=== PATIENT | female | born 1985 | race Caucasian/White ===

== ENCOUNTER 2018-09-30 17:38 | Emergency (ER) | payer SELFPAY ==
[~2018-09-30] VITALS: Ht 165.1 cm; Wt 52.2 kg
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
--- NOTE | 2018-09-30 17:58 | NUR ---
WAS TOLD BY POLICE IN [place], [place] TO COME TO THIS ER FOR DETOX EXPLANED TO PATIENT THAT WE DO NOT HAVE A DETOX UNIT HERE. Brenda HARRINGTON APRN TALKED WITH PATINT ABOUT HER THE [facility] AND WHAT THEY CAN DO FOR HER.
[2018-09-30] MEDS ORDERED: DIAZEPAM 5 MG (VALIUM) TABLET PO ONE (18:00)
[2018-09-30 18:05] VITALS: BP 130/89
[2018-10-01] MEDS ORDERED: TRAM50TA2 PO (08:57)
[2018-10-01] MEDS ORDERED: HYDR-3820 PO (08:57)
[2018-10-01] MEDS ORDERED: LORA0.5T PO (08:57)
[2018-10-01] MEDS ORDERED: MELO7.5T46 PO (08:58)
== END 2018-09-30 18:05 | disposition home or self-care (01) ==
LOC: ER 17:39
DX: F10.129 Alcohol abuse with intoxication, unspecified (principal)
CPT/HCPCS: 99283

== ENCOUNTER 2018-09-30 21:15 | Inpatient (IN) | payer SELFPAY ==
[~2018-09-30] VITALS: Ht 165.1 cm; Wt 59.0 kg
[2018-09-30] MEDS ORDERED: LACTATED RINGERS 1,000 ML IV ONE (21:36)
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
[2018-09-30 21:44] LABS: BASOPHILS # (AUTO) 0.1 10^3/uL (0.0-0.1); BASOPHILS % (AUTO) 1 % (0-10); EOSINOPHILS # (AUTO) 0.1 10^3/uL (0.0-0.3); EOSINOPHILS % (AUTO) 1 % (0-10); HEMATOCRIT 33 % (35-52); HEMOGLOBIN 10.6 G/DL (11.5-16.0); LYMPHOCYTES # (AUTO) 4.5 X 10^3 (1.0-4.0); LYMPHOCYTES % (AUTO) 44 % (12-44); MEAN CORPUSCULAR HEMOGLOBIN 28 PG (25-34); MEAN CORPUSCULAR HGB CONC 33 G/DL (32-36); MEAN CORPUSCULAR VOLUME 85 FL (80-99); MEAN PLATELET VOLUME 11.9 FL (7.4-10.4); MONOCYTES # (AUTO) 0.9 X 10^3 (0.0-1.0); MONOCYTES % (AUTO) 9 % (0-12); NEUTROPHILS # (AUTO) 4.6 X 10^3 (1.8-7.8); NEUTROPHILS % (AUTO) 45 % (42-75); PLATELET COUNT 254 10^3/uL (130-400); RED CELL DISTRIBUTION WIDTH 16.4 % (10.0-14.5); WHITE BLOOD COUNT 10.2 10^3/uL (4.3-11.0)
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
[2018-09-30 21:56] LABS: ALANINE AMINOTRANSFERASE 18 U/L (0-55); ALBUMIN 4.2 GM/DL (3.2-4.5); ALKALINE PHOSPHATASE 75 U/L (40-136); BILIRUBIN,TOTAL 0.8 MG/DL (0.1-1.0); BUN/CREATININE RATIO 21; CALCIUM 8.8 MG/DL (8.5-10.1); CARBON DIOXIDE 22 MMOL/L (21-32); CHLORIDE 109 MMOL/L (98-107); CREATININE SERUM 0.73 MG/DL (0.60-1.30); GFR ESTIMATED > 60; GLUCOSE 97 MG/DL (70-105); MAGNESIUM 2.2 MG/DL (1.6-2.4); POTASSIUM 3.2 MMOL/L (3.6-5.0); SALICYLATE < 5.0 MG/DL (5.0-20.0); SODIUM 145 MMOL/L (135-145); TOTAL PROTEIN 7.9 GM/DL (6.4-8.2)
[2018-09-30 21:59] LABS: BILIRUBIN,URINE NEGATIVE (NEGATIVE); CLARITY,URINE CLEAR; COLOR,URINE YELLOW; GLUCOSE, URINE (UA) NEGATIVE (NEGATIVE); KETONES,URINE NEGATIVE (NEGATIVE); LEUKOCYTE ESTERASE ,URINE NEGATIVE (NEGATIVE); NITRITE,URINE NEGATIVE (NEGATIVE); PH,URINE 7 (5-9); PROTEIN,URINE NEGATIVE (NEGATIVE); UROBILINOGEN,URINE NORMAL (NORMAL)
[2018-09-30] MEDS ORDERED: LORazepam INJ 2 MG/ML (ATIVAN) VIAL IVP ONE (22:00)
[2018-09-30 22:06] LABS: SQUAMOUS EPITHELIAL CELL,UR 0-2 /HPF
--- NOTE | 2018-09-30 22:09 | NUR ---
VERBAL ORDER FOR 1MG ATIVAN IV RECIEVED FROM DR. MCINTYRE, PUSHED IV OVER 1 MIN
[2018-09-30 22:13] LABS: ACETAMINOPHEN < 10 UG/ML (10-30)
[2018-09-30 22:14] LABS: AMPHETAMINE SCREEN, URINE NEGATIVE (NEGATIVE); BARBITURATE SCREEN URINE NEGATIVE (NEGATIVE); BENZODIAZEPINES SCREEN URINE POSITIVE (NEGATIVE); CANNABINOID SCREEN, URINE NEGATIVE (NEGATIVE); COCAINE SCREEN URINE NEGATIVE (NEGATIVE); METHADONE STAT NEGATIVE (NEGATIVE); METHAMPHETAMINE SCREEN URINE S NEGATIVE (NEGATIVE); OPIATE SCREEN URINE NEGATIVE (NEGATIVE); OXYCODONE STAT NEGATIVE (NEGATIVE); PROPOXYPHENE STAT NEGATIVE (NEGATIVE); TRICYCLIC ANTIDEPRESSANTS SCRE NEGATIVE (NEGATIVE)
--- NOTE | 2018-09-30 23:09 | NUR ---
2MG IV ATIVAN VERBAL ORDER RECIEVED FROM DR. MCINTYRE, PUSHED IV OVER 1MIN
[2018-10-01] VITALS (21 sets, daily range): BP systolic 95–158; BP diastolic 53–103
[2018-10-01] MEDS ORDERED: NS IV 1000 ML 1,000 ML ONE (01:11)
[2018-10-01] MEDS ORDERED: 1/2 NS IV SOLUTION 1,000 ML IV PRN (01:38)
[2018-10-01] MEDS: NS IV 1000 ML 1,000 ML IV SCH ×3 (01:38→17:50)
[2018-10-01] MEDS ORDERED: SENNA W/DOCUSATE (SENOKOT S) TABLET PO PRN (01:45)
[2018-10-01] MEDS ORDERED: ANTACID SUSP 30 ML UDC (MYLANTA) PO PRN (01:45)
[2018-10-01] MEDS ORDERED: D5 1/2 NS 1000 ML IV SOLUTION 1,000 ML IV PRN (01:45)
[2018-10-01] MEDS ORDERED: ONDANSETRON 4 MG/2 ML (SDV) Z0FRAN IV PRN (01:45)
[2018-10-01] MEDS ORDERED: LORazepam INJ 2 MG/ML (ATIVAN) VIAL IM/IV PRN (01:45)
[2018-10-01] MEDS ORDERED: ONDANSETRON 4 MG (ZOFRAN) ORAL DISSOLVE TAB SL PRN (01:45)
[2018-10-01] MEDS: D5 1/2 NS W/KCL 20 MEQ/L 1,000 ML IV SCH ×4 (01:49→20:28)
[2018-10-01] MEDS ORDERED: LORazepam INJ 2 MG/ML (ATIVAN) VIAL IVP ONE ×2 (03:30→23:09)
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
[2018-10-01] MEDS: POTASSIUM CL 10MEQ/50ML IVPB 50 ML IV SCH (06:13)
[2018-10-01] MEDS: KCL 20 MEQ TAB (K-DUR) PO SCH (06:13)
[2018-10-01] MEDS: MAGNESIUM 1 GM/100 ML IVPB 100 ML IV SCH (06:13)
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
[2018-10-01] MEDS ORDERED: TRAM50TA2 PO (08:57)
[2018-10-01] MEDS ORDERED: LORA0.5T PO (08:57)
[2018-10-01] MEDS ORDERED: HYDR-3820 PO (08:57)
[2018-10-01] MEDS ORDERED: MELO7.5T46 PO (08:58)
[2018-10-01] MEDS ORDERED: THIAMINE INJECTION 100 MG, FOLIC ACID INJECTION 1 MG, MAGNESIUM SULFATE 2 GM, VITAMIN M... IV SCH ×5 (09:00)
--- NOTE | 2018-10-01 09:02 | NUR ---
SPOKE WITH THE PATIENT ABOUT HER MEDICATIONS. SHE LISTED WHAT SHE TAKES AND I VERIFIED IT WITH THE EXT MED HX. SHE STATES SHE IS NO LONGER TAKING THE MELOXICAM AND SHE DOES NOT TAKE ANYTHING OTC.
[2018-10-01] MEDS: fentaNYL INJECTION 100 MCG/2 ML AMP IVP PRN ×6 (09:56→22:12)
[2018-10-01] MEDS: ONDANSETRON 4 MG/2 ML (SDV) Z0FRAN IV PRN ×2 (11:05→19:08)
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
[2018-10-01] MEDS: LORazepam 1 MG (ATIVAN) TAB PO PRN ×3 (14:42→20:28)
--- NOTE | 2018-10-01 14:43 | NUR ---
CM/SS spoke with the patient and she stated she had a bed date for A/D treatment in [place] that Christi Beck had helped her to get. She did not want her to know that she had drank last night. She did not remember how much she had drank last night of vodka. She stated that she had been on a franklin the last week and normally drank beer (around a 12pack nightly). She stated that she was worried about her son and that he lives with her parents but his father is trying to get custody of him. Spoke with Christi Beck, she has become a liaison due to the situation the patient is in, she did not give full details. Got the number for the treatment center in [place]. Spoke to the A/D treatment in [place] and they do have a bed available for the patient and would be able to give her the pain and ativan medications. The patient would have to arrive today by 5pm, this is not likely to happen today with transportation arrangements. The patient would have to arrive on 10/02 by 2-3pm. Christi was going to check if she was going to be able to transport.
[2018-10-02] VITALS (15 sets, daily range): BP systolic 108–157; BP diastolic 68–112
[2018-10-02] MEDS: fentaNYL INJECTION 100 MCG/2 ML AMP IVP PRN ×8 (01:06→17:03)
[2018-10-02] MEDS: LORazepam 1 MG (ATIVAN) TAB PO PRN (01:06)
[2018-10-02] MEDS: NS IV 1000 ML 1,000 ML IV SCH ×3 (02:01→18:12)
[2018-10-02 03:29] LABS: BASOPHILS % (AUTO) 0 % (0-10); EOSINOPHILS # (AUTO) 0.2 10^3/uL (0.0-0.3); EOSINOPHILS % (AUTO) 2 % (0-10); HEMATOCRIT 29 % (35-52); LYMPHOCYTES # (AUTO) 2.7 X 10^3 (1.0-4.0); LYMPHOCYTES % (AUTO) 32 % (12-44); MEAN CORPUSCULAR HEMOGLOBIN 27 PG (25-34); MEAN CORPUSCULAR HGB CONC 32 G/DL (32-36); MEAN CORPUSCULAR VOLUME 86 FL (80-99); MEAN PLATELET VOLUME 11.7 FL (7.4-10.4); MONOCYTES # (AUTO) 0.7 X 10^3 (0.0-1.0); MONOCYTES % (AUTO) 8 % (0-12); NEUTROPHILS # (AUTO) 5.1 X 10^3 (1.8-7.8); NEUTROPHILS % (AUTO) 59 % (42-75); PLATELET COUNT 218 10^3/uL (130-400); RED CELL DISTRIBUTION WIDTH 16.5 % (10.0-14.5); WHITE BLOOD COUNT 8.7 10^3/uL (4.3-11.0)
[2018-10-02 03:51] LABS: BUN/CREATININE RATIO 18; CALCIUM 7.8 MG/DL (8.5-10.1); CARBON DIOXIDE 19 MMOL/L (21-32); CHLORIDE 107 MMOL/L (98-107); CREATININE SERUM 0.66 MG/DL (0.60-1.30); GFR ESTIMATED > 60; GLUCOSE 111 MG/DL (70-105); MAGNESIUM 1.7 MG/DL (1.6-2.4); PHOSPHORUS 2.9 MG/DL (2.3-4.7); POTASSIUM 3.6 MMOL/L (3.6-5.0); SODIUM 135 MMOL/L (135-145)
--- NOTE | 2018-10-02 04:40 | Pulmonary Progress Note ---
Subjective Time Seen by a Provider: 05:00 Subjective/Events-last exam No complications noted. Sepsis Event Evaluation Height, Weight, BMI Height: 5'5.00" Weight: 122lbs. 0.0oz. 55.684384qh; 21.5 BMI Method:Stated Exam Exam Vital Signs Date Time Temp Pulse Resp B/P (MAP) Pulse Ox O2 Delivery O2 Flow Rate FiO2 10/02/18 04:00 86 18 96 Room Air 10/02/18 03:00 89 18 115/83 (94) 98 Room Air 10/02/18 02:00 80 24 112/68 (83) 98 Room Air 10/02/18 01:00 98.5 10/02/18 01:00 96 10/02/18 01:00 98 11 146/96 (113) 98 Room Air 10/02/18 00:00 83 25 157/87 (110) 96 Room Air 10/02/18 00:00 Room Air 10/01/18 23:00 95 18 158/99 (118) 100 Room Air 10/01/18 22:00 112 18 100 Room Air 10/01/18 21:00 111 26 118/71 (87) 98 Room Air 10/01/18 20:00 99.5 10/01/18 20:00 123 26 132/94 (107) 97 Room Air 10/01/18 20:00 Room Air 10/01/18 19:01 125 10/01/18 19:00 124 26 140/97 (111) Room Air 10/01/18 18:00 112 19 126/81 (96) Room Air 10/01/18 17:00 109 26 118/86 (97) Room Air 10/01/18 16:00 118 23 117/83 (94) Room Air 10/01/18 16:00 97 Room Air 10/01/18 15:00 110 42 125/83 (97) Room Air 10/01/18 14:00 115 49 124/86 (99) Room Air 10/01/18 13:00 131 10/01/18 13:00 105 22 113/78 (90) Room Air 10/01/18 12:30 100.2 10/01/18 12:00 97 Room Air 10/01/18 12:00 105 19 118/82 (94) Room Air 10/01/18 11:00 117 28 Room Air 10/01/18 10:00 123 11 108/88 (95) 91 Room Air 10/01/18 09:00 96 25 109/83 (92) 93 Room Air 10/01/18 08:00 117 36 109/87 (94) 98 Room Air 10/01/18 08:00 97 Room Air 10/01/18 08:00 100.0 10/01/18 07:00 111 10/01/18 07:00 108 21 108/70 (83) 97 Room Air 10/01/18 06:00 105 24 95/58 (70) Room Air 10/01/18 05:00 104 25 95/59 (71) 97 Room Air I & O 10/02/18 07:00 Intake Total 1735.2 ml Output Total 300 ml Balance 1435.2 ml Height & Weight Height: 5'5.00" Weight: 122lbs. 0.0oz. 55.029153pa; 21.5 BMI Method:Stated General Appearance: No Apparent Distress, Chronically ill HEENT: Moist Mucous Membranes; No Scleral Icterus (L), No Scleral Icterus (R) Neck: Normal Inspection, Non Tender; No Thyromegaly Respiratory: Lungs Clear, No Accessory Muscle Use, No Respiratory Distress Cardiovascular: No Murmur, Normal Peripheral Pulses, Tachycardia Capillary Refill: Less Than 3 Seconds Gastrointestinal: normal bowel sounds, non tender, soft Extremity: Normal Capillary Refill, No Calf Tenderness, No Pedal Edema Neurologic/Psychiatric: Alert, Oriented x3, Normal Mood/Affect Skin: Normal Color, Warm/Dry Lymphatic: No Adenopathy Results Lab Laboratory Tests 09/30/18 21:19 10/02/18 03:15 Assessment/Plan Assessment/Plan Alcohol abuse/intoxication -I suspect pt will leave AMA once she is awake -Currently has tele sitter. -EARNEST protocol - monitor Anemia -Monitor Contusion of right hip CARLO JOHNSON DO Oct 02, 2018 04:40
[2018-10-02] MEDS: D5 1/2 NS W/KCL 20 MEQ/L 1,000 ML IV SCH ×3 (04:41→18:12)
[2018-10-02] MEDS ORDERED: KCL 20 MEQ TAB (K-DUR) PO ONE (04:45)
[2018-10-02] MEDS: MAGNESIUM 1 GM/100 ML IVPB 100 ML IV SCH ×3 (05:17→06:19)
[2018-10-02] MEDS: POTASSIUM CL 10MEQ/50ML IVPB 50 ML IV SCH (06:19)
[2018-10-02] MEDS: KCL 20 MEQ TAB (K-DUR) PO SCH (06:19)
--- NOTE | 2018-10-02 07:38 | Discharge Inst-Simple/Standard ---
Discharge Inst-Standard Patient Instructions/Follow Up Plan of Care/Instructions/FU: Please continue to take your medications as written. Please comply with your rehab facility to help you quit drinking. Activity as Tolerated: Yes Discharge Diet: No Restrictions Return to The Hospital For: Confusion, hallucination, seizures, worsening pain, fever, chest pain, shortness of breath, if you feel you are getting worse. LEWIS NUNEZ MD Oct 02, 2018 07:38
[2018-10-02] MEDS ORDERED: TRAM50TA2 PO (07:56)
--- NOTE | 2018-10-02 08:08 | Discharge Summary ---
Diagnosis/Chief Complaint Date of Admission Sep 30, 2018 at 11:50 pm Date of Discharge Discharge Date: Oct 02, 2018 Admission Diagnosis Alcohol Intoxication Primary Care No,Local Physician Discharge Diagnosis (1) Alcohol abuse Status: Acute (2) Alcohol intoxication Status: Acute (3) Hypokalemia (4) Contusion of right hip Status: Acute (5) Microcytic anemia Discharge Summary Procedures/Consulations Dr Priti Calloway Discharge Physical Exam Allergies: Coded Allergies: No Known Drug Allergies (Unverified , 09/30/18) Vitals & I&Os Vital Signs Date Time Temp Pulse Resp B/P (MAP) Pulse Ox O2 Delivery O2 Flow Rate FiO2 10/02/18 12:00 110 7 134/91 (105) Room Air 10/02/18 10:00 95 10/02/18 07:29 98.1 General Appearance: No Apparent Distress, WD/WN Cardiovascular: Regular Rate, Rhythm, No Murmur Neurologic/Psychiatric: Alert, Oriented x3 Hospital Course Pt was admitted due to acute alcohol intoxication. She reports binge drinking over the past four weeks due to pain from her hip. She was monitored for airway protection and withdrawal and had an uncomplicated hospital course. Social work was consulted for assistance with discharge and resources. Arrangements were made for outpatient referral for treatment. Social work was able to assist patient with homeless assisted placement. She was discharged home in stable condition. Labs (last 24 hrs) Laboratory Tests 10/02/18 03:15: White Blood Count 8.7, Red Blood Count 3.32L, Hemoglobin 9.0L, Hematocrit 29L, Mean Corpuscular Volume 86, Mean Corpuscular Hemoglobin 27, Mean Corpuscular Hemoglobin Concent 32, Red Cell Distribution Width 16.5H, Platelet Count 218, Mean Platelet Volume 11.7H, Neutrophils (%) (Auto) 59, Lymphocytes (%) (Auto) 32, Monocytes (%) (Auto) 8, Eosinophils (%) (Auto) 2, Basophils (%) (Auto) 0, Neutrophils # (Auto) 5.1, Lymphocytes # (Auto) 2.7, Monocytes # (Auto) 0.7, Eosinophils # (Auto) 0.2, Basophils # (Auto) 0.0, Sodium Level 135, Potassium Level 3.6, Chloride Level 107, Carbon Dioxide Level 19L, Anion Gap 9, Blood Urea Nitrogen 12, Creatinine 0.66, Estimat Glomerular Filtration Rate > 60, BUN/Creatinine Ratio 18, Glucose Level 111H, Calcium Level 7.8L, Phosphorus Level 2.9, Magnesium Level 1.7 Patient resulted labs reviewed. Pending Labs Discussion & Recommendations Discharge Planning: >30 minutes discharge planning Discharge Home Medications: Active Scripts Active Tramadol HCl 50 Mg Tablet 50 Mg PO QID PRN Reported Hydrocodon-Acetaminophn 10-325 (Hydrocodone/Acetaminophen) 1 Each Tablet 1 Tab PO DAILY PRN Lorazepam 0.5 Mg Tablet 0.5 Mg PO TID PRN Instructions to patient/family Please see electronic discharge instructions given to patient. Clinical Quality Measures DVT/VTE Risk/Contraindication: Risk Factor Score Per Nursin RFS Level Per Nursing on Admit: 1=Low/No VTE PPX Problem Qualifiers (1) Alcohol intoxication: Complication of substance-induced condition: with delirium Qualified Codes: F10.921 - Alcohol use, unspecified with intoxication delirium (2) Contusion of right hip: Encounter type: initial encounter Qualified Codes: S70.01XA - Contusion of right hip, initial encounter LEWIS NUNEZ MD Oct 02, 2018 8:08 am
[2018-10-02] MEDS: ONDANSETRON 4 MG/2 ML (SDV) Z0FRAN IV PRN ×2 (08:32→14:43)
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
[2018-10-02] MEDS ORDERED: THIAMINE INJECTION 100 MG, FOLIC ACID INJECTION 1 MG, MAGNESIUM SULFATE 2 GM, VITAMIN M... IV SCH ×5 (09:00)
[2018-10-02] MEDS: LORazepam INJ 2 MG/ML (ATIVAN) VIAL IV PRN ×3 (09:44→18:06)
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
--- NOTE | 2018-10-02 11:24 | NUR ---
CM/SS Safe sanitation worker hosing machinery called back and stated that she is not eligible for services with them. They recommenced some Homeless Shelters in [facility], or in [place] if she [place] the [place]. Patient was not interested / scared of homeless senior care and stated that she wanted to return to her home. She stated that she had been living with the Boyfriend Vasyl and was unsure if she could return to the home since he went to senior care this day. The neighbor is supposed to be watching the home. She was unsure if he would give her a ride or if boyfriend's sister would give ride/place to stay. This group underwriter found a spray gun operator for her phone so that she could attempt to call these individuals for possible transportation and place to stay until treatment. Message left for Keyanna (Buggy Loader) to find out if she allowed to return to the home to gather belongings or to stay.
--- NOTE | 2018-10-02 13:37 | NUR ---
SKYE/ERIK spoke with the patient more about her plans, she wanted to stay at the home in [facility] where she had been living with the boyfriend (Vasyl). Called Keyanna with the [facility] [employer] and she did not recommend that the patient stay in that home at this time with how Vasyl's family was upset over the situation and him going to fpc. Patient is willing to call homeless shelters. [facility] is full. [place] ([facility], ) has open beds, the physicist cryogenics / hat blocking operator of the ministry will provide transportation for the patient. Addendum: 10/02/18 at 1342 by WILFREDO VALENCIA They will transport around 6:30pm.
== END 2018-10-02 18:55 | disposition home or self-care (01) | DRG 897 ==
LOC: EDUNIT# 21:15 → ER 21:17 → ICU 23:50
PROVIDERS: ADMIT Internal Medicine; ATTEND Internal Medicine
DX: F10.229 Alcohol dependence with intoxication, unspecified (principal); S70.01XA Contusion of right hip, initial encounter; D64.9 Anemia, unspecified; E87.6 Hypokalemia
CPT/HCPCS: 36415; 51702; 70450; 71045; 72125; 72170; 80048; 80053; 80306; 80320; 80329; 81000; 83735; 84100; 84443; 85025; 93005; 93041

== ENCOUNTER 2021-06-21 10:17 | Emergency (ER) | payer MEDICAID ==
[~2021-06-21] VITALS: Ht 165.1 cm; Wt 48.1 kg
[~2021-06-21 10:17] MED LIST: ACHYD1T PO; LORA0.5T PO; MELO7.5T46 PO; TRM50T PO
--- NOTE | 2021-06-21 10:42 | ED Abdominal Pain ---
General Chief Complaint: Abdominal/GI Problems Stated Complaint: BACK PAIN - VOMITING - CONSTIPATION Source of Information: Patient Exam Limitations: No Limitations History of Present Illness Date Seen by Provider: June 21, 2021 Time Seen by Provider: 10:40 Initial Comments To ER by private vehicle accompanied by her business center manager from the addiction treatment center where she was residing for alcohol detox at [place] with reports of right flank pain vomiting and constipation. She was seen at [facility] twice this past week and told she had kidney stones that were in the kidney. She states that her ears "actually do cause her pain when they are in the kidney". Current medication list: -Propranolol 10 mg 3 times daily -Gabapentin 600 mg 3 times daily -Clonazepam 1 mg twice daily -Olanzapine 2.5 mg at at bedtime -Mirtazapine 15 mg at at bedtime -Prazosin 1 mg at at bedtime -Tramadol 50 mg every 8 hours as needed -Hydroxyzine 50 mg every 8 hours as needed Timing/Duration: 1-2 Days Severity/Quality: Moderate Location: Flank Radiation: No Radiation Activities at Onset: None Allergies and Home Medications Allergies Coded Allergies: No Known Drug Allergies (Unverified , 09/30/18) Patient Home Medication List Home Medication List Reviewed: Yes Hydrocodone Bit/Acetaminophen (HYDROcodone/APAP 10/325 TABLET) 1 Each Tablet, 1 TAB PO DAILY PRN for PRIOR TO PHYSICAL THERAPY APPT, (Reported) Entered as Reported by: ROSARIO DALEY on 10/01/18 0857 Lorazepam (Lorazepam) 0.5 Mg Tablet, 0.5 MG PO TID PRN for ANXIETY, (Reported) Entered as Reported by: ROSARIO DALEY on 10/01/18 0857 Meloxicam (Mobic) 7.5 Mg Tablet, 7.5 MG PO DAILY Prescribed by: HONEY HARRINGTON on 06/21/211301 Last Action: New Order Methocarbamol (Methocarbamol) 750 Mg Tablet, 750 MG PO Q6-8HR Prescribed by: HONEY HARRINGTON on 06/21/211301 Last Action: New Order Peg/Electrolytes (Golytely Solution) 236-22.74G Soln, 4,000 ML PO ONCE Prescribed by: HONEY HARRINGTON on 06/21/211301 Last Action: New Order Tramadol HCl (Tramadol HCl) 50 Mg Tablet, 50 MG PO QID PRN for PAIN-MODERATE Prescribed by: LEWIS NUNEZ on 10/02/18 0756 Review of Systems Review of Systems Constitutional: see HPI EENTM: No Symptoms Reported Respiratory: No Symptoms Reported Cardiovascular: No Symptoms Reported Gastrointestinal: See HPI Genitourinary: No Symptoms Reported Musculoskeletal: see HPI Skin: no symptoms reported Psychiatric/Neurological: No Symptoms Reported Endocrine: No Symptoms Reported Hematologic/Lymphatic: No Symptoms Reported Past Qaxicfm-Ylngoa-Osbmug Hx Patient Social History Tobacco Use?: No Smoking Status: Never a Smoker Smokeless Tobacco Frequency: Never a User Use of E-Cig and/or Vaping dev: No Use of E-Cig and/or Vaping Yaron: Never a User Substance use?: No Alcohol Use?: No Family Medical History Unable to determine past medical and surgical history due to intoxication and altered mental status Physical Exam Vital Signs Vital Signs - First Documented 06/21/21 10:21 Temp 36.2 Pulse 69 Resp 17 O2 Delivery Room Air Capillary Refill : Height/Weight/BMI Height: 5'5.00" Weight: 130lbs. 0.3oz. 58.997586ks; 21.5 BMI Method:Stated General Appearance: WD/WN, no apparent distress Neck: non-tender, full range of motion Respiratory: no respiratory distress, no accessory muscle use Gastrointestinal: normal bowel sounds, non tender, soft Extremities: non-tender Back: CVA tenderness (R); No CVA tenderness (L) Neurologic/Psychiatric: alert, oriented x 3, other (flat affect, stoic) Skin: normal color, warm/dry Progress/Results/Core Measures Results/Orders Lab Results Laboratory Tests Test 06/21/21 10:22 06/21/21 10:59 Range/Units Urine Color YELLOW Urine Clarity CLEAR Urine pH 7.0 5-9 Urine Specific [place] 1.015 L 1.016-1.022 Urine Protein NEGATIVE NEGATIVE Urine Glucose (UA) NEGATIVE NEGATIVE Urine Ketones NEGATIVE NEGATIVE Urine Nitrite NEGATIVE NEGATIVE Urine Bilirubin NEGATIVE NEGATIVE Urine Urobilinogen 0.2 < = 1.0 MG/DL Urine Leukocyte Esterase NEGATIVE NEGATIVE Urine RBC (Auto) NEGATIVE NEGATIVE Urine RBC RARE /HPF Urine WBC RARE /HPF Urine Squamous Epithelial Cells 0-2 /HPF Urine Crystals PRESENT H /LPF Urine Amorphous Sediment FEW RONALD PHOSPHATE H /LPF Urine Bacteria NEGATIVE /HPF Urine Casts NONE /LPF Urine Mucus NEGATIVE /LPF Urine Culture Indicated NO White Blood Count 4.9 4.3-11.0 10^3/uL Red Blood Count 3.93 3.80-5.11 10^6/uL Hemoglobin 12.9 11.5-16.0 g/dL Hematocrit 38 35-52 % Mean Corpuscular Volume 96 80-99 fL Mean Corpuscular Hemoglobin 33 25-34 pg Mean Corpuscular Hemoglobin Concent 34 32-36 g/dL Red Cell Distribution Width 12.9 10.0-14.5 % Platelet Count 241 130-400 10^3/uL Mean Platelet Volume 10.9 9.0-12.2 fL Immature Granulocyte % (Auto) 0 % Neutrophils (%) (Auto) 54 42-75 % Lymphocytes (%) (Auto) 34 12-44 % Monocytes (%) (Auto) 8 0-12 % Eosinophils (%) (Auto) 3 0-10 % Basophils (%) (Auto) 1 0-10 % Neutrophils # (Auto) 2.7 1.8-7.8 10^3/uL Lymphocytes # (Auto) 1.7 1.0-4.0 10^3/uL Monocytes # (Auto) 0.4 0.0-1.0 10^3/uL Eosinophils # (Auto) 0.1 0.0-0.3 10^3/uL Basophils # (Auto) 0.1 0.0-0.1 10^3/uL Immature Granulocyte # (Auto) 0.0 0.0-0.1 10^3/uL Sodium Level 141 135-145 MMOL/L Potassium Level 4.1 3.6-5.0 MMOL/L Chloride Level 104 98-107 MMOL/L Carbon Dioxide Level 27 21-32 MMOL/L Anion Gap 10 5-14 MMOL/L Blood Urea Nitrogen 23 H 7-18 MG/DL Creatinine 1.18 0.60-1.30 MG/DL Estimat Glomerular Filtration Rate 62 BUN/Creatinine Ratio 19 Glucose Level 98 70-105 MG/DL Calcium Level 9.5 8.5-10.1 MG/DL Corrected Calcium 9.5 8.5-10.1 MG/DL Total Bilirubin 0.3 0.1-1.0 MG/DL Aspartate Amino Transf (AST/SGOT) 21 5-34 U/L Alanine Aminotransferase (ALT/SGPT) 18 0-55 U/L Alkaline Phosphatase 56 40-136 U/L Total Protein 7.4 6.4-8.2 GM/DL Albumin 4.0 3.2-4.5 GM/DL Serum Test, Qualitative NEGATIVE NEGATIVE Serum Alcohol < 10 <10 MG/DL My Orders Orders - HONEY HARRINGTON APRN Cbc With Automated Diff (06/21/21 10:37) Comprehensive Metabolic Panel (06/21/21 10:37) Ua Culture If Indicated (06/21/21 10:37) Hcg,Qualitative Serum (06/21/21 10:37) Ed Iv/Invasive Line Start (06/21/21 10:37) Ketorolac Injection (Toradol Injection) (06/21/21 10:45) Lactated Ringers (Lr 1000 Ml Iv Solution (06/21/21 10:45) Ct Abd/Pelvis Wo(Kidney Stone) (06/21/21 10:37) Alcohol (06/21/21 10:58) Protime With Inr (06/21/21 10:58) Lorazepam Injection (Ativan Injection) (06/21/21 11:00) Methylnaltrexone Injection (Relistor Inj (06/21/21 12:00) Bisacodyl Tablet (Dulcolax Tablet) (06/21/21 12:00) Medications Given in ED Current Medications Medications Dose Ordered Sig/Ovidio Route Start Time Stop Time Status Last Admin Dose Admin Bisacodyl 15 mg ONCE ONCE PO 06/21/21 12:00 06/21/21 12:01 DC 06/21/21 12:53 15 MG Ketorolac Tromethamine 15 mg ONCE ONCE IVP 06/21/21 10:45 06/21/21 10:46 DC 06/21/21 10:53 15 MG Lorazepam 1 mg ONCE ONCE IVP 06/21/21 11:00 06/21/21 11:01 DC 06/21/21 11:04 1 MG Methylnaltrexone [place] 12 mg ONCE ONCE SQ 06/21/21 12:00 06/21/21 12:01 DC 06/21/21 12:52 12 MG Vital Signs/I&O 06/21/21 10:21 Temp 36.2 Pulse 69 Resp 17 B/P (MAP) O2 Delivery Room Air Departure Communication (Admissions) Family Conversation NAME: [facility] REC#: [id number] PT STATUS: REG ER : 1985 PHYSICIAN: HONEY HARRINGTON APRN ADMIT DATE: 06/21/21/ER Draft Date of Exam:06/21/21 CT ABD/PELVIS WO(KIDNEY STONE) PROCEDURE: CT urinary tract, rule out kidney stone. TECHNIQUE: Multiple contiguous axial images were obtained through the abdomen and pelvis without the use of intravenous contrast. Auto Exposure Controls were utilized during the CT exam to meet ALARA standards for radiation dose reduction. INDICATION: Constipation x2-1/2 weeks. Right lower back pain, question kidney stone. EXAMINATION: CT abdomen and pelvis without contrast from 06/21/2021. FINDINGS: The lung bases appear clear. The nonopacified abdominal viscera is limited in evaluation given the lack of contrast with no gross acute of abnormality appreciated within the liver or spleen. The gallbladder is unremarkable. The pancreas and adrenal glands are normal. There are punctate stones within the right kidney with no hydronephrosis or ureteral stones appreciated on either side. No stones seen in the left kidney. Within the pelvis, there is streak artifact from postoperative change in the right hip, limiting evaluation. There is a vague hyperdensity along the midline superimposed upon the posterior aspect of the urinary bladder, nonspecific, possibly a recently passed stone in the bladder. There are findings of moderate constipation. The appendix is not seen but there is no inflammatory change about the cecum. There is no ascites or free air. There is no acute osseous abnormality. IMPRESSION: 1. Right-sided nephrolithiasis with no hydronephrosis. 2. Hypodensity in the posterior aspect of the urinary bladder, likely recently passed stone. 3. Findings of constipation. Dictated on workstation # [id number] Dict: 06/21/21 1153 Trans: 06/21/21 1213 [id number] [id number] Interpreted by: RUBIA HERMOSILLO MD Electronically signed by: [id number] spoke with Dr. Hook from radiology, the hypodensity mentioned in the CT report as in the bladder does not appear to me to be in the bladder. He agrees. This is outside of the bladder, possibly within the uterus versus a phlebolith. 1059-patient states that she needs lorazepam for CT. She states that she was given this at [facility] and was told to chew it so that it would work faster. Discussed with her that I will give her 1 mg of Ativan. She also tells me that she is bipolar and she is currently manic. I advised her that she is absolutely not manic she may be anxious but she has a flat affect. She feels like she is being labeled as drug-seeking because she comes from the addiction treatment center. Her business center manager is at the bedside supporting all of her claims Impression Primary Impression: Right flank pain Additional Impression: Constipation Disposition: 01 HOME, SELF-CARE Condition: Stable Departure-Patient Inst. Decision time for Depature: 11:16 Referrals: NO,LOCAL PHYSICIAN (PCP) Primary Care Physician OLAYINKA MENA MD Patient Instructions: Flank Pain ED Add. Discharge Instructions: 1. Return to ER for any concerns 2. Medication as directed. Follow-up with your doctor this week for further evaluation. All discharge instructions reviewed with patient and/or family. Voiced understanding. Scripts Peg/Electrolytes (Golytely Solution) 236-22.74G Soln 4000 ML PO ONCE, #1 EA . Prov: HONEY HARRINGTON APRN 06/21/21 Methocarbamol (Methocarbamol) 750 Mg Tablet 750 MG PO Q6-8HR for Back Pain, #10 TAB . Prov: HONEY HARRINGTON APRN 06/21/21 Meloxicam (Mobic) 7.5 Mg Tablet 7.5 MG PO DAILY, #20 TAB . Prov: HONEY HARRINGTON APRN 06/21/21 HONEY HARRINGTON APRN June 21, 2021 10:42
[2021-06-21 10:45] LABS: BILIRUBIN,URINE NEGATIVE (NEGATIVE); CLARITY,URINE CLEAR; COLOR,URINE YELLOW; GLUCOSE, URINE (UA) NEGATIVE (NEGATIVE); KETONES,URINE NEGATIVE (NEGATIVE); LEUKOCYTE ESTERASE ,URINE NEGATIVE (NEGATIVE); NITRITE,URINE NEGATIVE (NEGATIVE); PROTEIN,URINE NEGATIVE (NEGATIVE)
[2021-06-21] MEDS ORDERED: KETOROLAC 30 MG/ML VIAL IVP ONE (10:45)
[2021-06-21] MEDS ORDERED: LACTATED RINGERS 1,000 ML IV SCH (10:45)
[2021-06-21 11:00] LABS: AMORPHOUS SEDIMENT,UR FEW AMOR PHOSPHATE /LPF; BACTERIA,URINE NEGATIVE /HPF; RBC,URINE RARE /HPF; SQUAMOUS EPITHELIAL CELL,UR 0-2 /HPF; WBC,URINE RARE /HPF
[2021-06-21] MEDS ORDERED: LORazepam INJ 2 MG/ML (ATIVAN) VIAL IVP ONE (11:00)
[2021-06-21 11:12] LABS: BASOPHILS # (AUTO) 0.1 10^3/uL (0.0-0.1); BASOPHILS % (AUTO) 1 % (0-10); EOSINOPHILS # (AUTO) 0.1 10^3/uL (0.0-0.3); EOSINOPHILS % (AUTO) 3 % (0-10); HEMATOCRIT 38 % (35-52); HEMOGLOBIN 12.9 g/dL (11.5-16.0); LYMPHOCYTES # (AUTO) 1.7 10^3/uL (1.0-4.0); LYMPHOCYTES % (AUTO) 34 % (12-44); MEAN CORPUSCULAR HEMOGLOBIN 33 pg (25-34); MEAN CORPUSCULAR HGB CONC 34 g/dL (32-36); MEAN CORPUSCULAR VOLUME 96 fL (80-99); MEAN PLATELET VOLUME 10.9 fL (9.0-12.2); MONOCYTES # (AUTO) 0.4 10^3/uL (0.0-1.0); MONOCYTES % (AUTO) 8 % (0-12); NEUTROPHILS # (AUTO) 2.7 10^3/uL (1.8-7.8); NEUTROPHILS % (AUTO) 54 % (42-75); PLATELET COUNT 241 10^3/uL (130-400); WHITE BLOOD COUNT 4.9 10^3/uL (4.3-11.0)
[2021-06-21] MEDS ORDERED: MELO-170 PO ×2 (11:17→13:02)
[2021-06-21] MEDS ORDERED: METH-732 PO ×2 (11:17→13:02)
[2021-06-21 11:25] LABS: CHLORIDE 104 MMOL/L (98-107); POTASSIUM 4.1 MMOL/L (3.6-5.0); SODIUM 141 MMOL/L (135-145)
[2021-06-21 11:26] LABS: CALCIUM 9.5 MG/DL (8.5-10.1)
[2021-06-21 11:27] LABS: GLUCOSE 98 MG/DL (70-105); TOTAL PROTEIN 7.4 GM/DL (6.4-8.2)
[2021-06-21 11:28] LABS: CARBON DIOXIDE 27 MMOL/L (21-32)
[2021-06-21 11:29] LABS: BILIRUBIN,TOTAL 0.3 MG/DL (0.1-1.0)
[2021-06-21 11:31] LABS: ALKALINE PHOSPHATASE 56 U/L (40-136); CREATININE SERUM 1.18 MG/DL (0.60-1.30); GFR ESTIMATED 62
[2021-06-21 11:32] LABS: BUN/CREATININE RATIO 19
[2021-06-21 11:34] LABS: ALANINE AMINOTRANSFERASE 18 U/L (0-55)
[2021-06-21] MEDS ORDERED: CLT4KB PO ×2 (11:56→13:02)
[2021-06-21] MEDS ORDERED: BISACODYL 5 MG (DULCOLAX) TABLET PO ONE (12:00)
[2021-06-21] MEDS ORDERED: METHYLNALTREXONE 12 MG/0.6 ML (RELISTOR) VIAL SQ ONE (12:00)
--- NOTE | 2021-06-21 12:13 | Diagnostic Imaging Report ---
PROCEDURE: CT urinary tract, rule out kidney stone. TECHNIQUE: Multiple contiguous axial images were obtained through the abdomen and pelvis without the use of intravenous contrast. Auto Exposure Controls were utilized during the CT exam to meet ALARA standards for radiation dose reduction. INDICATION: Constipation x2-1/2 weeks. Right lower back pain, question kidney stone. EXAMINATION: CT abdomen and pelvis without contrast from 06/21/2021. FINDINGS: The lung bases appear clear. The nonopacified abdominal viscera is limited in evaluation given the lack of contrast with no gross acute of abnormality appreciated within the liver or spleen. The gallbladder is unremarkable. The pancreas and adrenal glands are normal. There are punctate stones within the right kidney with no hydronephrosis or ureteral stones appreciated on either side. No stones seen in the left kidney. Within the pelvis, there is streak artifact from postoperative change in the right hip, limiting evaluation. There is a vague hyperdensity along the midline superimposed upon the posterior aspect of the urinary bladder, nonspecific, possibly a recently passed stone in the bladder. There are findings of moderate constipation. The appendix is not seen but there is no inflammatory change about the cecum. There is no ascites or free air. There is no acute osseous abnormality. IMPRESSION: 1. Right-sided nephrolithiasis with no hydronephrosis. 2. Hypodensity in the posterior aspect of the urinary bladder, likely recently passed stone. 3. Findings of constipation. Dictated by: Dictated on workstation # [id number]
[2021-06-21 12:58] VITALS: BP 127/79
== END 2021-06-21 12:58 | disposition home or self-care (01) ==
LOC: EDUNIT# 10:17 → ER 10:19
DX: K59.00 Constipation, unspecified (principal)
CPT/HCPCS: 36415; 74176; 80053; 80320; 81000; 84703; 85025

== ENCOUNTER 2021-07-19 16:20 | Emergency (ER) | payer MEDICAID ==
[~2021-07-19] VITALS: Ht 167.7 cm; Wt 49.8 kg
[~2021-07-19 16:20] MED LIST changes: +CLT4KB PO; +MELO-170 PO; +METH-732 PO
[2021-07-19] MEDS ORDERED: NS IV 1000 ML 1,000 ML IV SCH (16:30)
--- NOTE | 2021-07-19 16:37 | ED Psychosocial ---
General Chief Complaint: Abdominal/GI Problems Stated Complaint: VOMITING Source: patient Exam Limitations: no limitations (BRIANNA BLUE) History of Present Illness Date Seen by Provider: Jul 19, 2021 Time Seen by Provider: 16:34 Initial Comments Patient is a 35-year-old female who presents ED by EMS for alcohol abuse, suicidal thoughts. She reports suicidal thoughts for several days. She states she was admitted to the [facility] unit at [facility] about 60 days ago for SI. She was at the women's house today. She states she drank vodka last night and today and mention to others at the house that she was suicidal. Patient was brought to ED by EMS. Currently suicidal without any plan. No HI. Denies drug use. She reports vomiting today without any blood or mucus. No diarrhea. Denies cough, chest pain, shortness of breath, abdominal pain, fever, diarrhea. She reports history of withdrawal seizures. Patient states she drinks daily. Patient requesting Ativan at this time. Patient is currently voluntary (BRIANNA BLUE) Allergies and Home Medications Allergies Coded Allergies: No Known Drug Allergies (Unverified , 09/30/18) Patient Home Medication List Home Medication List Reviewed: Yes (BRIANNA BLUE) Hydrocodone Bit/Acetaminophen (HYDROcodone/APAP 10/325 TABLET) 1 Each Tablet, 1 TAB PO DAILY PRN for PRIOR TO PHYSICAL THERAPY APPT, (Reported) Entered as Reported by: ROSARIO DALEY on 10/01/18 0857 Lorazepam (Lorazepam) 0.5 Mg Tablet, 0.5 MG PO TID PRN for ANXIETY, (Reported) Entered as Reported by: ROSARIO DALEY on 10/01/18 0857 Meloxicam (Mobic) 7.5 Mg Tablet, 7.5 MG PO DAILY Prescribed by: HONEY HARRINGTON on 06/21/21 1302 Methocarbamol (Methocarbamol) 750 Mg Tablet, 750 MG PO Q6-8HR Prescribed by: HONEY HARRINGTON on 06/21/21 1302 Peg/Electrolytes (Golytely Solution) 236-22.74G Soln, 4,000 ML PO ONCE Prescribed by: HONEY HARRINGTON on 06/21/21 1302 Tramadol HCl (Tramadol HCl) 50 Mg Tablet, 50 MG PO QID PRN for PAIN-MODERATE Prescribed by: LEWIS NUNEZ on 10/02/18 0756 Review of Systems Constitutional: No chills, No diaphoresis; weakness EENTM: No ear pain, No blurred vision Respiratory: No cough, No dyspnea on exertion Cardiovascular: No edema Gastrointestinal: No abdominal pain; nausea, vomiting Genitourinary: No no symptoms reported, No decreased output Musculoskeletal: No back pain, No joint pain Skin: No change in color, No change in hair/nails Psychiatric/Neurological: Denies Headache, Denies Numbness, Denies Paresthesia; Other (Suicidal ideations.) (BRIANNA BLUE) All Other Systems Reviewed Negative Unless Noted: Yes (BRIANNA BLUE) Past Knblett-Ibvpba-Oyqeuy Hx Family Medical History Unable to determine past medical and surgical history due to intoxication and altered mental status (BRIANNA BLUE) Physical Exam Vital Signs - First Documented 07/19/21 16:20 Pulse 93 Resp 16 B/P (MAP) 119/90 (100) Pulse Ox 97 O2 Delivery Room Air (BRIANNA DAILEY MD) Capillary Refill : (BRIANNA BLUE) Height, Weight, BMI Height: 5'5.00" Weight: 130lbs. 0.3oz. 58.533621lv; 17.00 BMI Method:Stated General Appearance: WD/WN, no apparent distress HEENT: PERRL/EOMI, normal ENT inspection, TMs normal, pharynx normal Neck: non-tender, full range of motion, supple Respiratory: chest non-tender, lungs clear, normal breath sounds, no respiratory distress, no accessory muscle use Cardiovascular: regular rate, rhythm, no edema, no gallop, no JVD Gastrointestinal: normal bowel sounds, non tender, soft, no organomegaly Extremities: normal range of motion, non-tender, normal inspection Neurologic/Psychiatric: balloon pilot II-XII nml as tested, no motor/sensory deficits, alert, normal mood/affect Behavior/Eye Contact: cooperative, good eye contact Thoughts/Hallucinations: no apparent hallucination, other (Suicidal thoughts) Skin: normal color, warm/dry (BRIANNA LBUE) Progress/Results/Core Measures Results/Orders Lab Results Laboratory Tests Test 07/19/21 16:49 07/19/21 20:15 07/19/21 22:43 07/20/21 06:00 Range/Units White Blood Count 6.8 4.3-11.0 10^3/uL Red Blood Count 4.03 3.80-5.11 10^6/uL Hemoglobin 12.9 11.5-16.0 g/dL Hematocrit 38 35-52 % Mean Corpuscular Volume 94 80-99 fL Mean Corpuscular Hemoglobin 32 25-34 pg Mean Corpuscular Hemoglobin Concent 34 32-36 g/dL Red Cell Distribution Width 13.5 10.0-14.5 % Platelet Count 333 130-400 10^3/uL Mean Platelet Volume 9.9 9.0-12.2 fL Immature Granulocyte % (Auto) 0 % Neutrophils (%) (Auto) 61 42-75 % Lymphocytes (%) (Auto) 31 12-44 % Monocytes (%) (Auto) 6 0-12 % Eosinophils (%) (Auto) 2 0-10 % Basophils (%) (Auto) 1 0-10 % Neutrophils # (Auto) 4.1 1.8-7.8 10^3/uL Lymphocytes # (Auto) 2.1 1.0-4.0 10^3/uL Monocytes # (Auto) 0.4 0.0-1.0 10^3/uL Eosinophils # (Auto) 0.1 0.0-0.3 10^3/uL Basophils # (Auto) 0.0 0.0-0.1 10^3/uL Immature Granulocyte # (Auto) 0.0 0.0-0.1 10^3/uL Sodium Level 145 135-145 MMOL/L Potassium Level 3.3 L 3.6-5.0 MMOL/L Chloride Level 106 98-107 MMOL/L Carbon Dioxide Level 24 21-32 MMOL/L Anion Gap 15 H 5-14 MMOL/L Blood Urea Nitrogen 28 H 7-18 MG/DL Creatinine 0.76 0.60-1.30 MG/DL Estimat Glomerular Filtration Rate 105 BUN/Creatinine Ratio 37 Glucose Level 91 70-105 MG/DL Calcium Level 8.9 8.5-10.1 MG/DL Corrected Calcium 8.9 8.5-10.1 MG/DL Total Bilirubin 0.8 0.1-1.0 MG/DL Aspartate Amino Transf (AST/SGOT) 41 H 5-34 U/L Alanine Aminotransferase (ALT/SGPT) 58 H 0-55 U/L Alkaline Phosphatase 70 40-136 U/L Total Protein 7.7 6.4-8.2 GM/DL Albumin 4.0 3.2-4.5 GM/DL Salicylates Level < 5.0 L 5.0-20.0 MG/DL Acetaminophen Level < 10 L 10-30 UG/ML Serum Alcohol 298 H 220 H <10 MG/DL Influenza Type A (RT-PCR) Not Detected Not Detecte Influenza Type B (RT-PCR) Not Detected Not Detecte SARS-CoV-2 RNA (RT-PCR) Not Detected Not Detecte Urine Color YELLOW Urine Clarity CLEAR Urine pH 6.0 5-9 Urine Specific [place] >=1.030 1.016-1.022 Urine Protein NEGATIVE NEGATIVE Urine Glucose (UA) NEGATIVE NEGATIVE Urine Ketones NEGATIVE NEGATIVE Urine Nitrite NEGATIVE NEGATIVE Urine Bilirubin NEGATIVE NEGATIVE Urine Urobilinogen 0.2 < = 1.0 MG/DL Urine Leukocyte Esterase NEGATIVE NEGATIVE Urine RBC (Auto) NEGATIVE NEGATIVE Urine RBC 2-5 H /HPF Urine WBC 5-10 H /HPF Urine Squamous Epithelial Cells 2-5 /HPF Urine Renal Epithelial Cells NONE /HPF Urine Crystals NONE /LPF Urine Bacteria MODERATE H /HPF Urine Casts NONE /LPF Urine Mucus LARGE H /LPF Urine Culture Indicated YES Urine Test NEGATIVE NEGATIVE Urine Opiates Screen NEGATIVE NEGATIVE Urine Oxycodone Screen NEGATIVE NEGATIVE Urine Methadone Screen NEGATIVE NEGATIVE Urine Propoxyphene Screen NEGATIVE NEGATIVE Urine Barbiturates Screen NEGATIVE NEGATIVE Ur Tricyclic Antidepressants Screen NEGATIVE NEGATIVE Urine Phencyclidine Screen NEGATIVE NEGATIVE Urine Amphetamines Screen NEGATIVE NEGATIVE Urine Methamphetamines Screen NEGATIVE NEGATIVE Urine Benzodiazepines Screen NEGATIVE NEGATIVE Urine Cocaine Screen NEGATIVE NEGATIVE Urine Cannabinoids Screen NEGATIVE NEGATIVE (BRAINNA DAILEY MD) My Orders Orders - BRIANNA DAILEY MD Diazepam Tablet (Valium Tablet) (07/20/21 00:30) Disposal Tray - Plastic-Paper (07/20/21 Breakfast) Olanzapine Orally Dissolve Tab (Zyprexa (07/20/21 04:30) Alcohol (07/20/21 06:00) (BRIANNA DAILEY MD) Medications Given in ED Current Medications Medications Dose Ordered Sig/Ovidio Route Start Time Stop Time Status Last Admin Dose Admin Diazepam 10 mg ONCE ONCE PO 07/20/21 00:30 07/20/21 00:31 DC 07/20/21 00:50 10 MG Olanzapine 10 mg ONCE ONCE PO 07/20/21 04:30 07/20/21 04:31 DC 07/20/21 04:37 10 MG (BRIANNA DAILEY MD) Vital Signs/I&O 07/20/21 00:00 Intake Total 2000 ml Balance 2000 ml (BRIANNA DAILEY MD) Progress Progress Note : Progress Note The patient was signed out from the outgoing provider. At that time her alcohol level was greater than 200, and to be screened by the mental health providers that needs to be less than 80. Plan would be to redraw it in the morning given that we will take many hours to lower to that level. Overnight, I personally evaluated the patient numerous times, her CIWA score for me was typically around 1-2 for mild anxiety. She had no tremors, no vital sign changes, and had no objective findings that would be concerning for withdrawal. Despite that, she says that she is worried that she could seize since that is what she has been told can happen. She was given diazepam to help calm her, but to be clear, I do not believe she was actively withdrawing at that time. I reassessed her around 06:00am and she is back to her baseline. She is no longer feeling suicidal at all. She says she makes "dumb decisions when she drinks too much". She says she is going to go to the woman's house and seek help. She confirms again that she does not want to harm herself. (BRIANNA DAILEY MD) Departure Communication (PCP) Not able to evaluate patient at this time secondary to elevated alcohol level. Patient was given 1 dose of Ativan. Patient resting comfortably. Currently suicidal and still requesting inpatient. Once patient's alcohol level decreased below 0.08 she can be evaluated (BRIANNA BLUE) Impression Primary Impression: Alcohol intoxication Qualified Codes: F10.920 - Alcohol use, unspecified with intoxication, uncomplicated Additional Impressions: Suicidal ideations Homelessness Disposition: 01 HOME, SELF-CARE Condition: Stable Departure-Patient Inst. Decision time for Depature: 06:13 (BRIANNA DAILEY MD) Referrals: [facility],LOCAL PHYSICIAN (PCP) Primary Care Physician Patient Instructions: Alcohol Intoxication ED Add. Discharge Instructions: Please follow-up with the woman's house, and you can follow-up with [facility] if you do not have a primary care physician. You can always come back to the ER if you are having thoughts to harm yourself. BRIANNA BLUE Jul 19, 2021 16:37 BRIANNA DAILEY MD Jul 20, 2021 05:24
[2021-07-19] MEDS ORDERED: ONDANSETRON 4 MG/2 ML (SDV) Z0FRAN IVP ONE (16:45)
[2021-07-19 16:58] LABS: BASOPHILS % (AUTO) 1 % (0-10); EOSINOPHILS # (AUTO) 0.1 10^3/uL (0.0-0.3); EOSINOPHILS % (AUTO) 2 % (0-10); HEMATOCRIT 38 % (35-52); HEMOGLOBIN 12.9 g/dL (11.5-16.0); LYMPHOCYTES # (AUTO) 2.1 10^3/uL (1.0-4.0); LYMPHOCYTES % (AUTO) 31 % (12-44); MEAN CORPUSCULAR HEMOGLOBIN 32 pg (25-34); MEAN CORPUSCULAR HGB CONC 34 g/dL (32-36); MEAN CORPUSCULAR VOLUME 94 fL (80-99); MEAN PLATELET VOLUME 9.9 fL (9.0-12.2); MONOCYTES # (AUTO) 0.4 10^3/uL (0.0-1.0); MONOCYTES % (AUTO) 6 % (0-12); NEUTROPHILS # (AUTO) 4.1 10^3/uL (1.8-7.8); NEUTROPHILS % (AUTO) 61 % (42-75); PLATELET COUNT 333 10^3/uL (130-400); WHITE BLOOD COUNT 6.8 10^3/uL (4.3-11.0)
[2021-07-19] MEDS ORDERED: LORazepam INJ 2 MG/ML (ATIVAN) VIAL IVP ONE (17:00)
[2021-07-19 17:16] LABS: CHLORIDE 106 MMOL/L (98-107)
[2021-07-19 17:17] LABS: POTASSIUM 3.3 MMOL/L (3.6-5.0); SODIUM 145 MMOL/L (135-145)
[2021-07-19 17:18] LABS: CALCIUM 8.9 MG/DL (8.5-10.1)
[2021-07-19 17:19] LABS: GLUCOSE 91 MG/DL (70-105)
[2021-07-19 17:20] LABS: CARBON DIOXIDE 24 MMOL/L (21-32); TOTAL PROTEIN 7.7 GM/DL (6.4-8.2)
[2021-07-19 17:21] LABS: BILIRUBIN,TOTAL 0.8 MG/DL (0.1-1.0)
[2021-07-19 17:23] LABS: ALKALINE PHOSPHATASE 70 U/L (40-136); CREATININE SERUM 0.76 MG/DL (0.60-1.30); GFR ESTIMATED 105
[2021-07-19 17:24] LABS: BUN/CREATININE RATIO 37
[2021-07-19 17:26] LABS: ALANINE AMINOTRANSFERASE 58 U/L (0-55); SALICYLATE < 5.0 MG/DL (5.0-20.0)
[2021-07-19 17:28] LABS: ACETAMINOPHEN < 10 UG/ML (10-30)
[2021-07-19] MEDS ORDERED: NS IV 1000 ML 1,000 ML IV STA (18:04)
[2021-07-19 23:08] LABS: BILIRUBIN,URINE NEGATIVE (NEGATIVE); CLARITY,URINE CLEAR; COLOR,URINE YELLOW; GLUCOSE, URINE (UA) NEGATIVE (NEGATIVE); KETONES,URINE NEGATIVE (NEGATIVE); LEUKOCYTE ESTERASE ,URINE NEGATIVE (NEGATIVE); NITRITE,URINE NEGATIVE (NEGATIVE); PROTEIN,URINE NEGATIVE (NEGATIVE)
[2021-07-19 23:15] LABS: BACTERIA,URINE MODERATE /HPF
[2021-07-19 23:19] LABS: AMPHETAMINE SCREEN, URINE NEGATIVE (NEGATIVE); BARBITURATE SCREEN URINE NEGATIVE (NEGATIVE); BENZODIAZEPINES SCREEN URINE NEGATIVE (NEGATIVE); CANNABINOID SCREEN, URINE NEGATIVE (NEGATIVE); COCAINE SCREEN URINE NEGATIVE (NEGATIVE); METHADONE STAT NEGATIVE (NEGATIVE); OPIATE SCREEN URINE NEGATIVE (NEGATIVE); OXYCODONE STAT NEGATIVE (NEGATIVE); PROPOXYPHENE STAT NEGATIVE (NEGATIVE); TRICYCLIC ANTIDEPRESSANTS SCRE NEGATIVE (NEGATIVE)
[2021-07-20] MEDS ORDERED: DIAZEPAM 5 MG (VALIUM) TABLET PO ONE (00:30)
[2021-07-20] MEDS ORDERED: OLANZapine 5 MG ODT (ZyPREXA ZYDIS) PO ONE (04:30)
[2021-07-20 06:40] VITALS: BP 116/84
== END 2021-07-20 06:40 | disposition home or self-care (01) ==
LOC: EDUNIT# 16:20 → ER 16:21
DX: F10.129 Alcohol abuse with intoxication, unspecified (principal); R45.851 Suicidal ideations; Z59.00 Homelessness unspecified; Z20.822 Contact with and (suspected) exposure to COVID-19; Y90.8 Blood alcohol level of 240 mg/100 ml or more
CPT/HCPCS: 36415; 80053; 80306; 80320; 80329; 81000; 84703; 85025; 87088; 87636; 93005; 93041

== ENCOUNTER 2021-07-20 19:18 | Emergency (ER) | payer MEDICAID ==
[~2021-07-20] VITALS: Ht 167.7 cm; Wt 49.9 kg
[2021-07-20] MEDS ORDERED: LORazepam INJ 2 MG/ML (ATIVAN) VIAL IVP ONE (20:45)
[2021-07-20 21:03] LABS: BASOPHILS # (AUTO) 0.1 10^3/uL (0.0-0.1); BASOPHILS % (AUTO) 1 % (0-10); EOSINOPHILS # (AUTO) 0.1 10^3/uL (0.0-0.3); EOSINOPHILS % (AUTO) 2 % (0-10); HEMATOCRIT 33 % (35-52); LYMPHOCYTES % (AUTO) 45 % (12-44); MEAN CORPUSCULAR HEMOGLOBIN 34 pg (25-34); MEAN CORPUSCULAR HGB CONC 36 g/dL (32-36); MEAN CORPUSCULAR VOLUME 94 fL (80-99); MEAN PLATELET VOLUME 10.2 fL (9.0-12.2); MONOCYTES # (AUTO) 0.6 10^3/uL (0.0-1.0); MONOCYTES % (AUTO) 8 % (0-12); NEUTROPHILS # (AUTO) 2.9 10^3/uL (1.8-7.8); NEUTROPHILS % (AUTO) 44 % (42-75); PLATELET COUNT 320 10^3/uL (130-400); WHITE BLOOD COUNT 6.7 10^3/uL (4.3-11.0)
[2021-07-20] MEDS ORDERED: ONDANSETRON 4 MG/2 ML (SDV) Z0FRAN ONE (21:07)
[2021-07-20] MEDS ORDERED: ONDANSETRON 4 MG/2 ML (SDV) Z0FRAN IVP ONE (21:15)
[2021-07-20 21:18] LABS: ALANINE AMINOTRANSFERASE 68 U/L (0-55); ALBUMIN 3.8 GM/DL (3.2-4.5); ALKALINE PHOSPHATASE 82 U/L (40-136); BILIRUBIN,TOTAL 0.9 MG/DL (0.1-1.0); BUN/CREATININE RATIO 29; CALCIUM 8.6 MG/DL (8.5-10.1); CARBON DIOXIDE 18 MMOL/L (21-32); CHLORIDE 106 MMOL/L (98-107); CREATININE SERUM 0.77 MG/DL (0.60-1.30); GFR ESTIMATED 104; GLUCOSE 134 MG/DL (70-105); POTASSIUM 3.7 MMOL/L (3.6-5.0); SALICYLATE < 5.0 MG/DL (5.0-20.0); SODIUM 144 MMOL/L (135-145); TOTAL PROTEIN 8.4 GM/DL (6.4-8.2)
[2021-07-20 21:20] LABS: ACETAMINOPHEN < 10 UG/ML (10-30)
[2021-07-20] MEDS ORDERED: NS IV 1000 ML 1,000 ML IV SCH (21:45)
--- NOTE | 2021-07-20 22:04 | ED Psychosocial ---
General Chief Complaint: Detox Stated Complaint: ALCOHOL WITHDRAWL/SEIZURE/SUICIDAL Nursing Triage Note: pt ambulatory to room. pt states she was discharged from this ER this AM. pt states she went home and had a seizure. pt states she did not know what to do, so she drank 3 beers at that time. pt states she was sober for 60 days until today and yesterday and wants nothing more than to get a safe detox. pt denies wanting to harm herself or others, she states she just wants a safe detox and doesn't know where to go Source: patient Exam Limitations: no limitations (BASIL DURAN APRN) History of Present Illness Date Seen by Provider: Jul 20, 2021 Time Seen by Provider: 20:27 Initial Comments This is a 35-year-old female who presented to the ER via POV for request to detox and passive suicidal thoughts. Patient was just in the ER yesterday for the same complaints and was discharged this morning after she stated that she no longer had the symptoms and states she makes "dumb decisions when she drinks too much". She was just released from the alcohol treatment center a few days ago and states that she was in an argument with her ex- about visitation with her daughter which triggered her and she ended up drinking alcohol a couple days after discharge from [facility]. She was acutely intoxicated yesterday and was kept overnight until her alcohol level was below 80 so we could complete a mental health evaluation. However once she was sober she declined mental health evaluation. She has back tonight with the same request. States she had a seizure at the [facility] and was found on the floor by another [facility] children. She is very anxious at this time. Has no physical complaints. (BASIL DURAN [employer]) Allergies and Home Medications Allergies Coded Allergies: No Known Drug Allergies (Unverified , 09/30/18) Patient Home Medication List Home Medication List Reviewed: Yes (BASIL DURAN APRN) Hydrocodone Bit/Acetaminophen (HYDROcodone/APAP 10/325 TABLET) 1 Each Tablet, 1 TAB PO DAILY PRN for PRIOR TO PHYSICAL THERAPY APPT, (Reported) Entered as Reported by: ROSARIO DALEY on 10/01/18 0857 Lorazepam (Lorazepam) 0.5 Mg Tablet, 0.5 MG PO TID PRN for ANXIETY, (Reported) Entered as Reported by: ROSARIO DALEY on 10/01/18 0857 Meloxicam (Mobic) 7.5 Mg Tablet, 7.5 MG PO DAILY Prescribed by: HONEY HARRINGTON on 06/21/21 1302 Methocarbamol (Methocarbamol) 750 Mg Tablet, 750 MG PO Q6-8HR Prescribed by: HONEY HARRINGTON on 06/21/21 1302 Peg/Electrolytes (Golytely Solution) 236-22.74G Soln, 4,000 ML PO ONCE Prescribed by: HONEY HARRINGTON on 06/21/21 1302 Tramadol HCl (Tramadol HCl) 50 Mg Tablet, 50 MG PO QID PRN for PAIN-MODERATE Prescribed by: LEWIS NUNEZ on 10/02/18 0756 Review of Systems Constitutional: no symptoms reported EENTM: no symptoms reported Respiratory: no symptoms reported Cardiovascular: no symptoms reported Gastrointestinal: no symptoms reported Genitourinary: no symptoms reported Musculoskeletal: no symptoms reported Skin: no symptoms reported (BASIL DURAN APRN) Past Vuyxgdw-Oeyqbe-Rbojgx Hx Patient Social History Tobacco Use?: No Substance use?: No Alcohol Use?: Yes Alcohol Frequency: Daily (BASIL DURAN APRN) Immunizations Up To Date Influenza Vaccine Up-to-Date: Yes; Up-to-Date First/Initial COVID19 Vaccinat: 2020 Second COVID19 Vaccination José: 2020 (BASIL DURAN APRN) Family Medical History Unable to determine past medical and surgical history due to intoxication and altered mental status (BASIL DURAN APRN) Physical Exam Vital Signs - First Documented 07/20/21 20:25 Temp 36.9 Pulse 123 Resp 18 B/P (MAP) 124/87 (99) Pulse Ox 95 (GUI NICHOLS) Capillary Refill : (BASIL DURAN APRN) Height, Weight, BMI Height: 5'5.00" Weight: 130lbs. 0.3oz. [id number]; 17.00 BMI Method:Stated General Appearance: WD/WN, no apparent distress HEENT: PERRL/EOMI, normal ENT inspection, pharynx normal Neck: full range of motion, normal inspection Respiratory: lungs clear, normal breath sounds, no respiratory distress, no accessory muscle use Cardiovascular: regular rate, rhythm Gastrointestinal: normal bowel sounds, non tender, soft Neurologic/Psychiatric: no motor/sensory deficits, alert, normal mood/affect, oriented x 3 Appearance/Memory: disheveled Behavior/Eye Contact: cooperative, good eye contact, normal speech Thoughts/Hallucinations: normal thought pattern Skin: normal color, warm/dry (BASIL DURAN APRN) Progress/Results/Core Measures Results/Orders Lab Results Laboratory Tests Test 07/20/21 20:37 07/20/21 22:07 Range/Units White Blood Count 6.7 4.3-11.0 10^3/uL Red Blood Count 3.56 L 3.80-5.11 10^6/uL Hemoglobin 12.0 11.5-16.0 g/dL Hematocrit 33 L 35-52 % Mean Corpuscular Volume 94 80-99 fL Mean Corpuscular Hemoglobin 34 25-34 pg Mean Corpuscular Hemoglobin Concent 36 32-36 g/dL Red Cell Distribution Width 13.3 10.0-14.5 % Platelet Count 320 130-400 10^3/uL Mean Platelet Volume 10.2 9.0-12.2 fL Immature Granulocyte % (Auto) 0 % Neutrophils (%) (Auto) 44 42-75 % Lymphocytes (%) (Auto) 45 H 12-44 % Monocytes (%) (Auto) 8 0-12 % Eosinophils (%) (Auto) 2 0-10 % Basophils (%) (Auto) 1 0-10 % Neutrophils # (Auto) 2.9 1.8-7.8 10^3/uL Lymphocytes # (Auto) 3.0 1.0-4.0 10^3/uL Monocytes # (Auto) 0.6 0.0-1.0 10^3/uL Eosinophils # (Auto) 0.1 0.0-0.3 10^3/uL Basophils # (Auto) 0.1 0.0-0.1 10^3/uL Immature Granulocyte # (Auto) 0.0 0.0-0.1 10^3/uL Sodium Level 144 135-145 MMOL/L Potassium Level 3.7 3.6-5.0 MMOL/L Chloride Level 106 98-107 MMOL/L Carbon Dioxide Level 18 L 21-32 MMOL/L Anion Gap 20 H 5-14 MMOL/L Blood Urea Nitrogen 22 H 7-18 MG/DL Creatinine 0.77 0.60-1.30 MG/DL Estimat Glomerular Filtration Rate 104 BUN/Creatinine Ratio 29 Glucose Level 134 H 70-105 MG/DL Calcium Level 8.6 8.5-10.1 MG/DL Corrected Calcium 8.8 8.5-10.1 MG/DL Total Bilirubin 0.9 0.1-1.0 MG/DL Aspartate Amino Transf (AST/SGOT) 70 H 5-34 U/L Alanine Aminotransferase (ALT/SGPT) 68 H 0-55 U/L Alkaline Phosphatase 82 40-136 U/L Total Protein 8.4 H 6.4-8.2 GM/DL Albumin 3.8 3.2-4.5 GM/DL TSH [facility] Testing 4.45 0.35-4.94 UIU/ML Salicylates Level < 5.0 L 5.0-20.0 MG/DL Acetaminophen Level < 10 L 10-30 UG/ML Serum Alcohol 252 H <10 MG/DL Urine Color YELLOW Urine Clarity CLEAR Urine pH 7.5 5-9 Urine Specific [place] <=1.005 1.016-1.022 Urine Protein NEGATIVE NEGATIVE Urine Glucose (UA) NEGATIVE NEGATIVE Urine Ketones NEGATIVE NEGATIVE Urine Nitrite NEGATIVE NEGATIVE Urine Bilirubin NEGATIVE NEGATIVE Urine Urobilinogen 0.2 < = 1.0 MG/DL Urine Leukocyte Esterase NEGATIVE NEGATIVE Urine RBC (Auto) 3+ H NEGATIVE Urine RBC 0-2 /HPF Urine WBC RARE /HPF Urine Squamous Epithelial Cells 0-2 /HPF Urine Renal Epithelial Cells NONE /HPF Urine Crystals NONE /LPF Urine Bacteria NEGATIVE /HPF Urine Casts NONE /LPF Urine Mucus NEGATIVE /LPF Urine Culture Indicated NO Urine Opiates Screen NEGATIVE NEGATIVE Urine Oxycodone Screen NEGATIVE NEGATIVE Urine Methadone Screen NEGATIVE NEGATIVE Urine Propoxyphene Screen NEGATIVE NEGATIVE Urine Barbiturates Screen NEGATIVE NEGATIVE Ur Tricyclic Antidepressants Screen NEGATIVE NEGATIVE Urine Phencyclidine Screen NEGATIVE NEGATIVE Urine Amphetamines Screen NEGATIVE NEGATIVE Urine Methamphetamines Screen NEGATIVE NEGATIVE Urine Benzodiazepines Screen NEGATIVE NEGATIVE Urine Cocaine Screen NEGATIVE NEGATIVE Urine Cannabinoids Screen NEGATIVE NEGATIVE (GUI NICHOLS) Medications Given in ED Current Medications Medications Dose Ordered Sig/Ovidio Route Start Time Stop Time Status Last Admin Dose Admin Lorazepam 1 mg ONCE ONCE IVP 07/20/21 20:45 07/20/21 20:46 DC 07/20/21 21:10 1 MG Olanzapine 5 mg ONCE ONCE PO 07/20/21 22:15 07/20/21 22:18 DC 07/20/21 22:23 5 MG Ondansetron HCl 4 mg ONCE ONCE IVP 07/20/21 21:15 07/20/21 21:16 DC 07/20/21 21:10 4 MG Thiamine HCl 100 mg ONCE ONCE IV 07/20/21 22:15 07/20/21 22:18 DC 07/20/21 22:23 100 MG (GUI NICHOLS) Vital Signs/I&O 07/20/21 20:25 Temp 36.9 Pulse 123 Resp 18 B/P (MAP) 124/87 (99) Pulse Ox 95 (GUI NICHOLS) Blood Pressure Mean: 99 Progress Progress Note : Progress Note Upon arrival patient is very anxious, concerned that she is going to have another seizure. States that the last time she drink was several hours ago. Her heart rate is 125 at this time. She would like to be reevaluated by mental health when she is sober stating "I just cannot live this way". She does not have any active plan just continually makes remarks of her inability to live the way she is currently living. Orders placed for Ativan 1 mg IV push. We will go ahead and evaluate her for medical screening again and see about mental health evaluation when she is sober. She is agreeable with this plan. Shortly after receiving Ativan patient was found squatting over has a wrist basket urinating, she had already urinated into other spots on the floor. When asked what she was doing states that she was needing to use the bathroom and there was no bathroom available. She was found rummaging through the drawers. Had IVF infusing and ripped out her IV. Given Zyprexa 5mg PO tablet. approximate hour after receiving Zyprexa she appeared to calm, she was again found squatting over a bucket on the floor but states that she could not reach the commode that was in the room due to her IV, she appears a little more rational at this time. She is asking for Ativan repeatedly stating that she typically will receive Ativan 1 mg every 4 hours for detox symptoms. Discussed that she is still very much acutely intoxicated and she does not require any more Ativan at this time. We will continue to monitor her as her blood alcohol levels continue to decrease and will evaluate and treat as necessary. She verbalized understanding. 0040: Care turned over to Dr. Nichols at this time. She is currently lying on bed resting in exam room 8. (BASIL DURAN APRN) Progress Note : Time: 03:17 Progress Note Patient is sleeping, has got up and walked to the bathroom on her own. She was given something to drink and some snacks. We are waiting for her alcohol levels to go low enough so that she can have a mental health screen which is what she wants. We will recheck alcohol level in another 2 hours. (GUI NICHOLS) Initial ECG Impression Date: Jul 20, 2021 Initial ECG Impression Time: 21:15 Initial ECG Rate: 115 Initial ECG Rhythm: S.Tach Initial ECG Intervals: Normal Initial ECG Impression: Normal Initial ECG Comparisson: Unchanged (BASIL DURAN APRN) Departure Impression Primary Impression: Alcohol intoxication Additional Impression: Suicidal ideations Disposition: 30 STILL A PATIENT Condition: Stable Departure-Patient Inst. Referrals: NO,LOCAL PHYSICIAN (PCP/Family) Primary Care Physician BASIL DURAN APRN Jul 20, 2021 22:04 GUI NICHOLS Jul 21, 2021 03:18
[2021-07-20 22:14] LABS: BILIRUBIN,URINE NEGATIVE (NEGATIVE); CLARITY,URINE CLEAR; COLOR,URINE YELLOW; GLUCOSE, URINE (UA) NEGATIVE (NEGATIVE); KETONES,URINE NEGATIVE (NEGATIVE); LEUKOCYTE ESTERASE ,URINE NEGATIVE (NEGATIVE); NITRITE,URINE NEGATIVE (NEGATIVE); PH,URINE 7.5 (5-9); PROTEIN,URINE NEGATIVE (NEGATIVE)
[2021-07-20] MEDS ORDERED: OLANZapine 5 MG ODT (ZyPREXA ZYDIS) PO ONE (22:15)
[2021-07-20] MEDS ORDERED: THIAMINE 100 MG/ML 2 ML (VITAMIN B-1) VIAL IV ONE (22:15)
[2021-07-20 22:22] LABS: BACTERIA,URINE NEGATIVE /HPF; RBC,URINE 0-2 /HPF; SQUAMOUS EPITHELIAL CELL,UR 0-2 /HPF; WBC,URINE RARE /HPF
[2021-07-20 22:23] LABS: BENZODIAZEPINES SCREEN URINE NEGATIVE (NEGATIVE); COCAINE SCREEN URINE NEGATIVE (NEGATIVE)
[2021-07-20 22:24] LABS: AMPHETAMINE SCREEN, URINE NEGATIVE (NEGATIVE); BARBITURATE SCREEN URINE NEGATIVE (NEGATIVE); CANNABINOID SCREEN, URINE NEGATIVE (NEGATIVE); METHADONE STAT NEGATIVE (NEGATIVE); OPIATE SCREEN URINE NEGATIVE (NEGATIVE); OXYCODONE STAT NEGATIVE (NEGATIVE); PROPOXYPHENE STAT NEGATIVE (NEGATIVE); TRICYCLIC ANTIDEPRESSANTS SCRE NEGATIVE (NEGATIVE)
[2021-07-21 07:24] VITALS: BP 130/95
== END 2021-07-21 07:22 | disposition home or self-care (01) ==
LOC: EDUNIT# 19:18 → ER 19:19
DX: F10.229 Alcohol dependence with intoxication, unspecified (principal); R45.851 Suicidal ideations; Y90.8 Blood alcohol level of 240 mg/100 ml or more
CPT/HCPCS: 36415; 80053; 80306; 80320; 80329; 81000; 84443; 85025; 93005; 93041